=== PATIENT | female | born 1975 | race Caucasian/White ===

== ENCOUNTER 2017-04-02 20:28 | Emergency (ER) | payer SELFPAY ==
[2017-04-02 20:33] VITALS: BMI 29.2
[2017-04-02] MEDS ORDERED: TORADOL 30 MG VIAL IVP ONE (21:50)
[2017-04-02] MEDS ORDERED: TORADOL 30 MG VIAL ONE (21:52)
[2017-04-02] MEDS ORDERED: NS 1000 ML 1,000 ML ONE (21:52)
--- NOTE | 2017-04-02 21:53 | DR.GENAD ---
HPI - PCP Primary Care Physician: nasir - Complaint/Symptoms Chief Complaint:: COUGH , FEVER, SORE THROAT SINCE LAST WEEK. "I WANT MY HAND XRAYED TOO, I THINK I RE INJURED IT." - Source History Provided: Patient - Mode of Arrival Mode of Arrival: Ambulatory - Timing Onset of Chief Complaint: 03/26/17 PMH - PMH Past Medical History: Yes Past Medical History: Hypertension Past Medical History Comment: CERVICAL CANCER, OVARIAN CANCER. CHRONIC BACK PAIN Past Surgical History: Yes Surgical History: , Hysterectomy - Family History History of Family Medical Conditions: Yes Family Medical History: Diabetes Mellitus, Cancer, [place], Coronary Artery Disease, Hypertension - Social History Type of Tobacco Use: Cigarettes Do you use any recreational Drugs:: No Lives With: Family Lives Where: Home - infectious screening Have you traveled outside the country in the last 6 months?: No Isolation: Standard ROS - Review of Systems Constitutional: No Symptoms Reported Eyes: No Symptoms Reported ENTM: No Symptoms Reported Respiratoy: No Symptoms Reported Cardiovascular: No Symptoms Reported Gastrointestinal/Abdominal: No Symptoms Reported Genitourinary: No Symptoms Reported Neurological: No Symptoms Reported Musculoskeletal: No Symptoms Reported Integumentary: No Symptoms Reported Hematologic/Lymphatic: No Symptoms Reported Endocrine: No Symptoms Reported Psychiatric: No Symptoms Reported All Other Systems: Reviewed and Negative PE - Vital Signs Vitals: Temperature 98.9 F Pulse Rate 119 Respiratory Rate 16 Blood Pressure 173/110 O2 Sat by Pulse Oximetry 100 - General Limitations: No Limitations General Appearance: Alert, Lethargic - Head Head Exam: Normal Inspection, Atraumatic - Eyes Eye exam: Normal Appearance, PERRL, EOMI - ENT ENT Exam: Normal Exam External Ear Exam: Normal External Inspection TM/Canal Exam: Bilateral Normal Nose Exam: Normal Nose Exam Mouth Exam: Normal Inspection Throat Exam: Normal Inspection - Neck Neck Exam: Normal Inspection, Full ROM - Chest Chest Inspection: Normal Inspection - Respiratory Respiratory Exam: Normal Lung Sounds Bilat Respiratory Exam: Bilateral Clear to Auscultation - Cardiovascular Cardiovascular Exam: Tachycardia - Abdominal Exam Abdominal Exam: Normal Inspection, Normal Bowel Sounds Abdominal Tenderness: RUQ, RLQ, LUQ, LLQ, Epigastrium, Suprapubic, Diffuse, Mild , Moderate, Severe, Other - Extremities Extremities Exam: Normal Inspection, Full ROM - Back Back Exam: Normal Inspection - Neurologic Neurological Exam: Alert, Oriented X3, CN II-XII Intact - Psychiatric Psychiatric Exam: Normal Affect - Skin Skin Exam: Warm, Dry, Intact Course - Treatment Treatment: NS 1L - Reevaluation 1st: Improved ROR - Labs Reviewed Laboratory: Influenza Type A (PCR) Negative (NEGATIVE) 04/02/17 21:01 Influenza Type B (PCR) Negative (NEGATIVE) 04/02/17 21:01 Streptococcus Screen Negative (NEGATIVE) 04/02/17 21:01 - XRAY XRAY Interpreted by: Radiologist (Hand: No fracture/dislocation--DJD changes) - Diagnosis Discharge Problem: Influenza-like illness - Discharge Plan Condition: Stable - Follow ups/Referrals Follow ups/Referrals: ANNA OWEN [Primary Care Provider] - 3 days - Instructions
--- NOTE | 2017-04-02 21:58 | RAD ---
Left hand, three views Indication: Left hand pain Comparison: None Findings: No acute fracture or malalignment is identified. Joint spaces are preserved without signifi cant degenerative or erosive change. Surrounding soft tissues are unremarkable. Impression: No acute radiographic abnormality of the left hand. Reported By:
[2017-04-02] MEDS ORDERED: NS 1000 ML 1,000 ML IV ONE (22:01)
[2017-04-02 22:47] VITALS: BP 168/98
== END 2017-04-02 22:40 | disposition home or self-care (01) ==
LOC: ER 20:45
DX: M79.642 Pain in left hand (principal)
CPT/HCPCS: 73130; 87070; 87502; 87880; 96365; 96374; 99283; A4222; J1885